=== PATIENT | male | born 1960 | race Caucasian/White ===

== ENCOUNTER 2019-11-20 18:38 | Inpatient (IN) | payer MEDICAID ==
[~2019-11-20] VITALS: Ht 160 cm; Wt 39.9 kg
[2019-11-20 18:39] VITALS: Ht 160 cm; Wt 39.9 kg
[2019-11-20 20:04] LABS: BASOPHIL % 0.8 % (0-2)
[2019-11-20 20:06] LABS: PLATELET COUNT 418 x10^3mcL (130-400); RED CELL DISTRIBUTION WIDTH 34.2 % (11.5-14.5)
[2019-11-20 20:16] LABS: CALCIUM 7.9 mg/dL (8.5-10.1); CARBON DIOXIDE 29.6 mmol/L (21-32); CHLORIDE SERUM 105 mmol/L (98-107); CREATININE SERUM 0.7 mg/dL (0.7-1.3); GFR1 > 60 mL/min; GLUCOSE SERUM 87 mg/dL (74-106); POTASSIUM SERUM 3.4 mmol/L (3.5-5.1); SODIUM SERUM 142 mmol/L (136-145)
[2019-11-20 20:20] LABS: ALKALINE PHOSPHATASE 79 U/L (46-116); ALT/SGPT 16 U/L (16-63); AST/SGOT 24 U/L (15-37); BILIRUBIN TOTAL 0.1 mg/dL (0.20-1.00); TOTAL PROTEIN, SERUM 7.1 g/dL (6.4-8.2)
[2019-11-20 20:59] LABS: rbc morphology (normal/abnorm) ABNORMAL (NORMAL)
[2019-11-20 21:00] LABS: ovalocyte/elliptocyte 1+
[2019-11-20] MEDS ORDERED: NORCO 10-325 T1 EACH PO (21:45)
[2019-11-20 22:33] LABS: FREE T4 0.92 ng/dL (0.76-1.46); FREE THYROXINE INDEX 2.1 ug/dL (1.4-4.5); T3 TOTAL 1.05 ng/mL; T4(THYROXINE) 6.8 ug/dL (4.7-13.3)
[2019-11-20 22:35] LABS: CHOLESTEROL/HDL RATIO 2.7
[2019-11-20 22:53] LABS: C REACTIVE PROTEIN 5.3 mg/dL (<=0.9)
[2019-11-20 23:45] VITALS: BP 116/61
[2019-11-21] MEDS ORDERED: SUCRALFATE1 GM PO (00:02)
[2019-11-21] MEDS ORDERED: OMEPRAZOLE20 M4 PO (00:02)
[2019-11-21] MEDS ORDERED: FLUOXETINE HCL20 M2 PO (00:02)
[2019-11-21] MEDS ORDERED: METOPROLOL SUCC25 M2 PO (00:03)
[2019-11-21] MEDS ORDERED: DAILY VITE1 TA2 PO (00:03)
[2019-11-21] MEDS ORDERED: FERROUS SULFAT325 M2 PO (00:03)
[2019-11-21] MEDS ORDERED: ATORVASTATIN CA40 M1 PO (00:04)
[2019-11-21 06:49] VITALS: BP 112/59
[2019-11-21 09:45] VITALS: BP 114/61
[2019-11-21 10:53] LABS: microscopic required? YES; urine erythrocyte NEGATIVE (NEGATIVE)
[2019-11-21 10:57] LABS: AMPHETAMINE QUAL UR POSITIVE (See below)
== END 2019-11-21 17:24 | disposition left against medical advice (07) | DRG 139 ==
LOC: ED 18:38 → DU 21:41
PROVIDERS: Emergency Medicine; ADMIT Internal Medicine
DX: J18.9 Pneumonia, unspecified organism (principal); E43 Unspecified severe protein-calorie malnutrition; E87.2 Acidosis; F11.20 Opioid dependence, uncomplicated; D50.9 Iron deficiency anemia, unspecified; E11.9 Type 2 diabetes mellitus without complications; B18.2 Chronic viral hepatitis C; M94.0 Chondrocostal junction syndrome [Tietze]; E87.6 Hypokalemia; K21.9 Gastro-esophageal reflux disease without esophagitis; I10 Essential (primary) hypertension; G89.29 Other chronic pain; E78.5 Hyperlipidemia, unspecified; M54.5 Low back pain; Z53.29 Procedure and treatment not carried out because of patient's decision for other reasons; Z68.1 Body mass index [BMI] 19.9 or less, adult; Z88.6 Allergy status to analgesic agent
CPT/HCPCS: 83880; 84439; 85378; 87804; G0378; J0456; J0696; J2270; J2405; J7030; J7040; J7050; J7060; Q0092; U0002

== ENCOUNTER 2019-11-21 18:30 | Inpatient (IN) | payer MEDICAID ==
[~2019-11-21] VITALS: Ht 160 cm; Wt 41.9 kg
[~2019-11-21 18:30] MED LIST: ATORVASTATIN CA40 M1 PO; DAILY VITE1 TA2 PO; FERROUS SULFAT325 M2 PO; FLUOXETINE HCL20 M2 PO; METOPROLOL SUCC25 M2 PO; NORCO 10-325 T1 EACH PO; OMEPRAZOLE20 M4 PO; SUCRALFATE1 GM PO
[2019-11-21 19:55] LABS: BASOPHIL % 0.2 % (0-2)
[2019-11-21 20:05] LABS: PLATELET COUNT 450 x10^3mcL (130-400); RED CELL DISTRIBUTION WIDTH 33.8 % (11.5-14.5)
[2019-11-21 20:06] LABS: CALCIUM 8.7 mg/dL (8.5-10.1); CARBON DIOXIDE 28.7 mmol/L (21-32); CHLORIDE SERUM 105 mmol/L (98-107); CREATININE SERUM 0.7 mg/dL (0.7-1.3); GFR1 > 60 mL/min; GLUCOSE SERUM 100 mg/dL (74-106); POTASSIUM SERUM 4.9 mmol/L (3.5-5.1); SODIUM SERUM 138 mmol/L (136-145)
[2019-11-21 20:46] LABS: rbc morphology (normal/abnorm) ABNORMAL (NORMAL)
[2019-11-21 20:47] LABS: ovalocyte/elliptocyte 1+
[2019-11-22 00:06] VITALS: BP 124/41
[2019-11-22 07:34] LABS: BASOPHIL % 1.5 % (0-2)
[2019-11-22 07:59] LABS: PLATELET COUNT 463 x10^3mcL (130-400); RED CELL DISTRIBUTION WIDTH 33.4 % (11.5-14.5)
[2019-11-22 09:00] LABS: CARBON DIOXIDE 22.3 mmol/L (21-32); CHLORIDE SERUM 108 mmol/L (98-107); CREATININE SERUM 0.6 mg/dL (0.7-1.3); GFR1 > 60 mL/min; GLUCOSE SERUM 78 mg/dL (74-106); MAGNESIUM 1.8 mg/dL (1.8-2.4); POTASSIUM SERUM 4.2 mmol/L (3.5-5.1); SODIUM SERUM 138 mmol/L (136-145)
[2019-11-22 12:37] LABS: rbc morphology (normal/abnorm) ABNORMAL (NORMAL)
[2019-11-22 12:38] LABS: ovalocyte/elliptocyte 1+; target cell (codocyte) 1+
[2019-11-22 16:37] VITALS: BP 112/68
[2019-11-23 10:20] LABS: BASOPHIL % 0.3 % (0-2)
[2019-11-23 10:27] LABS: PLATELET COUNT 475 x10^3mcL (130-400); RED CELL DISTRIBUTION WIDTH 34.3 % (11.5-14.5)
[2019-11-23 10:48] LABS: CALCIUM 8.3 mg/dL (8.5-10.1); CARBON DIOXIDE 24.8 mmol/L (21-32); CHLORIDE SERUM 106 mmol/L (98-107); CREATININE SERUM 0.8 mg/dL (0.7-1.3); GFR1 > 60 mL/min; GLUCOSE SERUM 177 mg/dL (74-106); MAGNESIUM 1.6 mg/dL (1.8-2.4); PHOSPHOROUS 1.8 mg/dL (2.5-4.9); POTASSIUM SERUM 3.3 mmol/L (3.5-5.1); SODIUM SERUM 140 mmol/L (136-145)
[2019-11-23 21:30] VITALS: BP 117/68
[2019-11-24 16:40] VITALS: Ht 160 cm; Wt 41.9 kg
== END 2019-11-24 16:15 | disposition left against medical advice (07) | DRG 139 ==
LOC: ED 18:30 → DU 20:39 → MU 11-23 17:02
PROVIDERS: Emergency Medicine; ADMIT Internal Medicine
DX: J18.9 Pneumonia, unspecified organism (principal); J96.01 Acute respiratory failure with hypoxia; E43 Unspecified severe protein-calorie malnutrition; E11.9 Type 2 diabetes mellitus without complications; E78.5 Hyperlipidemia, unspecified; D50.9 Iron deficiency anemia, unspecified; E87.6 Hypokalemia; G89.29 Other chronic pain; M54.9 Dorsalgia, unspecified; K21.9 Gastro-esophageal reflux disease without esophagitis; M94.0 Chondrocostal junction syndrome [Tietze]; Z68.1 Body mass index [BMI] 19.9 or less, adult; Z88.6 Allergy status to analgesic agent; Z86.19 Personal history of other infectious and parasitic diseases; Z83.3 Family history of diabetes mellitus; Z82.49 Family history of ischemic heart disease and other diseases of the circulatory system; Z87.891 Personal history of nicotine dependence
CPT/HCPCS: G0378; J0456; J0696; J2543; Q0092; Q9967; U0002